=== PATIENT | female | born 1955 | race Caucasian/White ===

== ENCOUNTER 2016-12-13 10:20 | Inpatient (IN) | payer BC ==
[~2016-12-13] VITALS: Ht 172.7 cm; Wt 83.9 kg
[2016-12-13 10:20] VITALS: BP 151/73; PULSE 64; RESP 18; TEMP 96.4; O2SAT 98
[~2016-12-13 10:20] MED LIST: AVELOX; LACTULOSE; NORCO5 PO; THYROID MED; ULTRAM; ZOFRAN
--- NOTE | 2016-12-13 10:20 | NUR ---
Dr. Coyle at bedside for evaluation
--- NOTE | 2016-12-13 10:20 | NUR ---
Patient to ER bed 03 to gown for evaluation. Side rails up.
--- NOTE | 2016-12-13 10:25 | NUR ---
PT arrived to ED VIA walk in with chief complaint of N/V and ABD pain x 3 days. PT reports pain of 9/10 to the L ABD. PT vomitted in ED. Appears in acute pain. at bedside. Will continue to monitor.
[2016-12-13] MEDS ORDERED: NACL 0.9% 1,000 ML IV ONE (10:26)
[2016-12-13] MEDS ORDERED: PROCHLORPERAZINE EDISYLATE 10 MG/2 ML VIAL IVP ONE (10:30)
[2016-12-13] MEDS ORDERED: ONDANSETRON HCL 4 MG/2 ML VIAL IVP ONE ×2 (10:30→13:30)
[2016-12-13] MEDS ORDERED: KETOROLAC TROMETHAMINE 30 MG VIAL IVP ONE (10:30)
--- NOTE | 2016-12-13 11:04 | NUR ---
Medicated per MD orders. IVF infusing with no s/s of infiltration at this time. Will cont to monitor
--- NOTE | 2016-12-13 11:17 | NUR ---
PT transported off unit to [place] via [facility]
[2016-12-13 11:23] LABS: BASOPHILS % (AUTO) 0.7 % (0.0-2.0); EOSINOPHILS # (AUTO) 0.1 K/uL (0.0-0.4); EOSINOPHILS % (AUTO) 0.8 % (0.0-4.0); HEMATOCRIT 39.9 % (36-48); HEMOGLOBIN 13.3 g/dL (12.0-16.0); LYMPHOCYTES # (AUTO) 1.3 K/uL (1.0-5.5); LYMPHOCYTES % (AUTO) 19.1 % (20.5-51.5); MEAN CORPUSCULAR HEMOGLOBIN 31 pg (27-31); MEAN CORPUSCULAR HGB CONC 34 % (32-36); MEAN CORPUSCULAR VOLUME 91 fL (79.0-98.0); MONOCYTES # (AUTO) 0.3 K/uL (0.0-1.0); MONOCYTES % (AUTO) 4.7 % (1.7-9.3); NEUTROPHILS # (AUTO) 5.2 K/uL (1.8-7.7); NEUTROPHILS % (AUTO) 74.7 % (40.0-70.0); PLATELET COUNT (AUTO) 209 K/uL (130-430); RED BLOOD CELL COUNT(AUTO) 4.38 MIL/uL (4.2-6.2); RED CELL DISTRIBUTION WIDTH 13.1 % (9.0-15.0); WHITE BLOOD COUNT (AUTO) 6.9 K/uL (4.8-10.8)
[2016-12-13 11:32] LABS: CREATININE 1.04 mg/dL (0.55-1.30); POTASSIUM 3.9 mmol/L (3.5-5.1)
[2016-12-13 11:35] LABS: INR 0.9 (0.8-1.2); PROTHROMBIN TIME 10.2 SECS (9.5-12.5)
[2016-12-13 11:36] LABS: TOTAL BILIRUBIN 0.4 mg/dL (0.0-1.0); TOTAL PROTEIN, SERUM 7.7 g/dL (6.4-8.3)
--- NOTE | 2016-12-13 11:40 | NUR ---
pt. to the bathroom ambulatory, urine sample collected and sent to lab, ambulation tolerated well
[2016-12-13] MEDS ORDERED: VITD2000 PO (11:57)
[2016-12-13] MEDS ORDERED: ALEN70TA3 PO (11:57)
[2016-12-13] MEDS ORDERED: ASCO500T20 PO (11:57)
[2016-12-13] MEDS ORDERED: DOCU-144 PO (11:57)
[2016-12-13] MEDS ORDERED: LEVO75TA7 PO (11:57)
--- NOTE | 2016-12-13 11:58 | NUR ---
Medication reconciliation completed with information provided by patient. Any prior medication reconciliation on file was reviewed and corrected.
[2016-12-13 12:00] LABS: BILIRUBIN,URINE NEGATIVE (NEGATIVE); BLOOD, URINE 2+ (NEGATIVE); CLARITY/URINE CLEAR (CLEAR); COLOR,URINE YELLOW (YELLOW); GLUCOSE,URINE NEGATIVE (NEGATIVE); KETONES,URINE 1+ (NEGATIVE); LEUKOCYTE ESTERASE ,URINE NEGATIVE (NEGATIVE); NITRITE, URINE NEGATIVE (NEGATIVE); PH,URINE 7.5 (5.0-8.0); PROTEIN URINE NEGATIVE (NEGATIVE); UROBILINOGEN,URINE 0.2 (0.2-1.0)
[2016-12-13 12:18] LABS: BACTERIA,URINE RARE /HPF (None Seen); MUCUS,URINE 1+ /LPF (None Seen); WBC,URINE 0-3 /HPF (0-3)
--- NOTE | 2016-12-13 12:55 | NUR ---
Patient will be admitted to care of Dr. Arriaza . Admitted to Med/surg unit. Will go to room 110-A. Belongings list completed. Summary report printed. Report will be given at bedside. Transfer to [facility]. IV present no sign or symptom of infiltration.
--- NOTE | 2016-12-13 13:07 | NUR ---
Pt c/o abdominal pain. Dr. Arriaza paged for orders. Pt placed on cammod for BM.
[2016-12-13] MEDS ORDERED: MORPHINE 4 MG/ML INJ. SYRINGE IVP PRN ×2 (13:30→13:45)
[2016-12-13] MEDS ORDERED: DEXAMETHASONE SOD PHOSPHATE 10 MG/ML VIAL IVP ONE (13:30)
--- NOTE | 2016-12-13 13:50 | NUR ---
ADMISSION NOTE Received patient from ER via [place], received report from CARLOTTA COLON. Patient admitted with diagnosis of ABDOMINAL PAIN. Patient oriented to hospital routine, call light, toileting and safety-patient verbalized understanding.
[2016-12-13 13:56] VITALS: BP 145/83; PULSE 65; RESP 19; TEMP 97; O2SAT 97
--- NOTE | 2016-12-13 14:03 | NUR ---
REPORT RECEIVED FROM MUKUND SKINNER RN. PATIENT IS IN BED 110A, APPEARS UNCOMFORTABLE, ANXIOUS
[2016-12-13] MEDS ORDERED: METOCLOPRAMIDE HCL 10 MG/2 ML VIAL IVP PRN (15:00)
[2016-12-13] MEDS ORDERED: MORPHINE 2 MG/ML INJ. SYRINGE IVP PRN (15:00)
[2016-12-13] MEDS: D5NS 1,000 ML IV SCH (15:39)
[2016-12-13] MEDS: ONDANSETRON HCL 4 MG/2 ML VIAL IVP PRN ×2 (15:44→22:39)
--- NOTE | 2016-12-13 16:00 | NUR ---
patient medicated for pain and nausea. reports some improvement in both. anurag estevez and lauren paged for consults
[2016-12-13] MEDS ORDERED: PANTOPRAZOLE SODIUM 40 MG/VIAL (PROTONIX) IVP ONE (16:45)
--- NOTE | 2016-12-13 16:56 | NUR ---
GI Consult: for Dr. Kaba, regarding abdominal pain, ordered by Dr. Arriaza, spoke with Yady.
--- NOTE | 2016-12-13 17:06 | NUR ---
Surgical Consult: for Dr. Lim, regarding nausea/vomiting, ordered by Dr. Arriaza, spoke with
[2016-12-13 17:14] LABS: HEMOGLOBIN 13.3 g/dL (12.0-16.0)
--- NOTE | 2016-12-13 17:40 | NUR ---
DR GUERRA RETURNED PAGE FOR CONSULT. STATES HE WILL BE IN TO SEE PATIENT TOMORROW.
[2016-12-13] MEDS ORDERED: DIATR MEGLU/DIATRIZ SOD 30 ML SOLUTION PO ONE (18:54)
[2016-12-13 20:00] VITALS: BP 144/84; PULSE 76; RESP 18; TEMP 98.8
--- NOTE | 2016-12-13 20:00 | NUR ---
STARTING FLASH DEVELOPER NOTE Patient sitting in bed and nauseous. She vomited several times. The nurse checked to see whether one of her anti-emetic medications can be given, but none was due. The patient states that she is not in pain, only the distress from vomiting. The nurse tried to flush the IV line, but it flushed very hard and it was constantly beeping. The nurse was approached by the CT-scan tech and informed that the patient will be taken to have CT-scan of abdomen/pelvis w/without contrast, both oral and IV. The tech requested a new IV line to be inserted at least #20, so he can safely administer the contrast. The nurse tried to insert IV, she asked another nurse for help, but no IV line could be inserted at the moment due to patient's veins blowing. The nurse paged Dr. Marino and informed him of the situation and that the patient will be taken to the CT-scan only with the oral contrast she was drinking in bed. Dr. Marino did not place any orders. The patient was taken to CT-scan with oral contrast only. was at the bed side.
[2016-12-13] MEDS ORDERED: IOHEXOL 100 ML IV ONE (20:44)
--- NOTE | 2016-12-13 21:16 | NUR ---
PAGED PAGED TEVIN WINTER AT [phone] SPOKE WITH MAKSIM,
--- NOTE | 2016-12-13 22:00 | NUR ---
2199 NOTE Patient came back from CT-scan. She continued to vomit intermittently. The nurse decided to try one more time about inserting the IV line and asked another nurse to try it. The nurse managed to insert a new IV line on the left forearm #20. The is still at the bed side. Addendum: 12/14/16 at 0132 by Nicki Enriquez RN The patient asked for her pain medication. The nurse administered Moprhine 2 mg. New line flushes very well, IVF running smoothly.
[2016-12-13] MEDS: PANTOPRAZOLE SODIUM 40 MG/VIAL (PROTONIX) IVP SCH (22:39)
[2016-12-13 23:19] LABS: HEMATOCRIT 38.3 % (36-48); HEMOGLOBIN 13.1 g/dL (12.0-16.0)
--- NOTE | 2016-12-14 | NUR ---
0000 NOTE Patient in bed resting. She still vomits from time to time clear liquid yellowish in color (bile). The nurse administered Zofran 4 mg PRN per MD order. The patient kept vomiting for about 5-6 more minutes intermittently. Than she said she feels a little better and went to bed. No S/S of pain noted. The has left for the night. Since a new IV line was inserted, the nurse spoke with the patient about doing the CT-scan again tonight, but with IV contrast per MD order. The patient declined to do it tonight stating that her wants to be present at the CT-scan. The nurse will put an order for the CT-scan with contrast to be done tomorrow morning.
[2016-12-14 00:11] VITALS: BP 133/77; PULSE 94; RESP 18; TEMP 97.4; O2SAT 96
--- NOTE | 2016-12-14 02:00 | NUR ---
NOTE Patient in bed sleeping. No vomiting, pain or distress noted. IVF running smoothly, fall precautions in place.
[2016-12-14] MEDS: D5NS 1,000 ML IV SCH (03:50)
--- NOTE | 2016-12-14 04:10 | NUR ---
NOTE Patient in bed sleeping. No distress or pain noted. Fall precautions in place.
[2016-12-14 04:19] VITALS: BP 128/69; PULSE 85; RESP 18; TEMP 97.8; O2SAT 95
[2016-12-14 06:57] LABS: HEMATOCRIT 35.5 % (36-48); HEMOGLOBIN 11.9 g/dL (12.0-16.0)
[2016-12-14] MEDS ORDERED: LEVOTHYROXINE SODIUM 0.075 MG TABLET PO SCH (07:00)
--- NOTE | 2016-12-14 07:23 | NUR ---
OPENING NOTE PATIENT IS AWAKE, ALERT. REPORTS PAIN AND NAUSEA STILL. EATING ICE CHIPS IN BED. PER PT SHE IS REFUSING IV CONTRAST CT AND REQUESTING TO SPEAK W [facility] REGARDING ORAL CONTRAST CT RESULTS. PER NIGHTSHIFT PT LOST IV ACCESS AT TIME OF CONTRAST IV SCAN AND NO ACCESS WAS OBTAINED FOR SEVERAL HOURS. PRELIMINARY CT RESULTS FILED
[2016-12-14 08:00] VITALS: BP 149/79; PULSE 85; RESP 18; TEMP 98.5; O2SAT 98
[2016-12-14] MEDS: PANTOPRAZOLE SODIUM 40 MG/VIAL (PROTONIX) IVP SCH (08:52)
--- NOTE | 2016-12-14 09:36 | NUR ---
DR MOROCHO IN TO SEE PATIENT. DR GUERRA WAS IN TO SEE PATIENT AROUND 0800. PER DR GUERRA NO NEED FOR SURGERY AT THIS TIME.
[2016-12-14 10:41] LABS: HEMATOCRIT 35.4 % (36-48); HEMOGLOBIN 11.9 g/dL (12.0-16.0)
--- NOTE | 2016-12-14 10:45 | NUR ---
PER DR MOROCHO, ADMIN SOFT DIET. IF PT TOLERATES THEN PT MAY BE DC'D FROM HIS CARE AND IT IS THEN UP TO DR SANTOS FOR DC ORDERS. DIETARY PAGED ASKING FOR SOFT DIET SNACK TO ASSESS TOLERANCE OF DIET
[2016-12-14 12:00] VITALS: BP 132/78; PULSE 86; RESP 18; TEMP 98.6; O2SAT 98
--- NOTE | 2016-12-14 12:50 | NUR ---
pt tolerating gi soft diet well. still awaiting jandial to return earlier page regarding another patient
--- NOTE | 2016-12-14 13:00 | NUR ---
CALLED ATTENDING MD DR SANTOS, RE: DISCHARGE ORDER, PT WANTS TO GO HOME. SPOKE TO BHAVESH
[2016-12-14] MEDS ORDERED: metroNIDAZOLE 500 MG TABLET PO SCH (14:00)
--- NOTE | 2016-12-14 14:38 | NUR ---
dr trujillo in to see patient
[2016-12-14 16:00] VITALS: BP 166/88; PULSE 90; RESP 18; TEMP 98.3; O2SAT 98
[2016-12-14 16:22] VITALS: BP 144/67; PULSE 80; RESP 18; TEMP 98; O2SAT 98
--- NOTE | 2016-12-14 16:56 | NUR ---
DC ORDERS GIVEN. PT DC'D HOME VIA PRIVATE AUTO. IV DC'D AND PRESSURE DRESSING APPLIED. ALL DC INSTRUCTIONS EXPLAINED AND PATIENT VERBALIZED UNDERSTANDING.
[2016-12-14] MEDS ORDERED: LEVOFLOXACIN 500 MG TABLET PO SCH (21:00)
--- NOTE | 2016-12-18 14:49 | NUR ---
Discharge Follow Up Phone Call Referral for appointment scheduling assistance. RANGE RIDER phoned patient, , and left a voicemail message. Patient returned the call. Patient stated she was doing well. She has made her follow up appointment with her PCP. She has no questions or concerns.
== END 2016-12-14 16:56 | disposition home or self-care (01) | DRG 392 ==
LOC: SED 10:20 → SMU 12:47
PROVIDERS: ADMIT Internal Medicine Hospice and Palliative Medicine; ATTEND Internal Medicine Hospice and Palliative Medicine
DX: K52.9 Noninfective gastroenteritis and colitis, unspecified (principal); E03.9 Hypothyroidism, unspecified; M81.0 Age-related osteoporosis without current pathological fracture; H54.8 Legal blindness, as defined in USA; R11.2 Nausea with vomiting, unspecified; Z90.49 Acquired absence of other specified parts of digestive tract; Z88.5 Allergy status to narcotic agent; Z79.899 Other long term (current) drug therapy; Z94.7 Corneal transplant status
CPT/HCPCS: 36415; 80053; 81000-TC; 82150-TC; 83690-TC; 85018-TC; 85025; 85610-TC; 85730-TC; 96361; 96374; 96375; 96376; 99285; C9113; J0780; J1100; J1885; J2270; J2405; J2765; J7030; J7042; Q9964; Q9967

== ENCOUNTER 2017-06-24 08:57 | Inpatient (IN) | payer BC ==
[~2017-06-24] VITALS: Ht 172.7 cm; Wt 77.1 kg
[~2017-06-24 08:57] MED LIST changes: +ALEN70TA3 PO; +ASCO500T20 PO; -AVELOX; +DOCU-144 PO; -LACTULOSE; +LEVO75TA7 PO; -NORCO5 PO; -THYROID MED; -ULTRAM; +VITD2000 PO; -ZOFRAN
[2017-06-24 09:00] VITALS: BP_SYST 159
[2017-06-24] MEDS ORDERED: NACL 0.9% 1,000 ML IV ONE (09:11)
[2017-06-24] MEDS ORDERED: MORPHINE 2 MG/ML INJ. SYRINGE IVP ONE ×2 (09:15→10:30)
[2017-06-24] MEDS ORDERED: ONDANSETRON HCL 4 MG/2 ML VIAL IVP ONE (09:15)
[2017-06-24 09:32] LABS: BASOPHILS # (AUTO) 0.1 K/uL (0.0-0.2); BASOPHILS % (AUTO) 0.9 % (0.0-2.0); EOSINOPHILS % (AUTO) 0.3 % (0.0-4.0); HEMATOCRIT 44.2 % (36-48); HEMOGLOBIN 14.5 g/dL (12.0-16.0); LYMPHOCYTES % (AUTO) 11.3 % (20.5-51.5); MEAN CORPUSCULAR HEMOGLOBIN 31 pg (27-31); MEAN CORPUSCULAR HGB CONC 33 % (32-36); MEAN CORPUSCULAR VOLUME 93 fL (79.0-98.0); MONOCYTES # (AUTO) 0.2 K/uL (0.0-1.0); MONOCYTES % (AUTO) 2.8 % (1.7-9.3); NEUTROPHILS # (AUTO) 7.2 K/uL (1.8-7.7); NEUTROPHILS % (AUTO) 84.7 % (40.0-70.0); PLATELET COUNT (AUTO) 245 K/uL (130-430); RED BLOOD CELL COUNT(AUTO) 4.75 MIL/uL (4.2-6.2); RED CELL DISTRIBUTION WIDTH 12.7 % (9.0-15.0); WHITE BLOOD COUNT (AUTO) 8.5 K/uL (4.8-10.8)
[2017-06-24 09:45] LABS: CALCIUM 9.5 mg/dL (8.4-11.0); CREATININE 1.07 mg/dL (0.55-1.30); POTASSIUM 4.2 mmol/L (3.5-5.1)
[2017-06-24 09:51] LABS: ALBUMIN 4.2 g/dL (3.4-4.8); TOTAL BILIRUBIN 0.5 mg/dL (0.0-1.0)
[2017-06-24] MEDS ORDERED: LEVO25TA7 PO (10:21)
[2017-06-24] MEDS ORDERED: ACETAMINOPHEN 325 MG TABLET PO PRN (10:30)
[2017-06-24] MEDS ORDERED: MORPHINE 2 MG/ML INJ. SYRINGE IVP PRN (10:30)
[2017-06-24 10:54] VITALS: BP_SYST 160
[2017-06-24] MEDS: ONDANSETRON HCL 4 MG/2 ML VIAL IVP PRN ×2 (11:27→16:34)
[2017-06-24] MEDS: MORPHINE 4 MG/ML INJ. SYRINGE IVP PRN ×2 (11:29→16:35)
[2017-06-24] MEDS: D5NS 1,000 ML IV SCH (14:24)
[2017-06-24] MEDS: metroNIDAZOLE 500 mg/NS 100 ML IV SCH ×2 (14:43→22:36)
[2017-06-24 16:00] VITALS: BP_SYST 112
[2017-06-24 16:09] VITALS: BP_SYST 112
[2017-06-24] MEDS: LEVOFLOXACIN 500 MG/D5W 100 ML IV SCH (16:43)
[2017-06-24] MEDS ORDERED: HYDROmorphone 1 MG INJ. 1 MG/ML AMPUL IVP PRN (18:00)
[2017-06-24] MEDS: HYDROmorphone 2 MG/ML VIAL IVP PRN (18:04)
[2017-06-24] MEDS: METOCLOPRAMIDE HCL 10 MG/2 ML VIAL IVP PRN (18:04)
[2017-06-24 20:00] VITALS: BP_SYST 149
[2017-06-25 00:23] VITALS: BP_SYST 131
[2017-06-25] MEDS: D5NS 1,000 ML IV SCH ×3 (01:57→23:33)
[2017-06-25] MEDS: METOCLOPRAMIDE HCL 10 MG/2 ML VIAL IVP PRN (01:58)
[2017-06-25] MEDS: ONDANSETRON HCL 4 MG/2 ML VIAL IVP PRN ×3 (04:22→21:26)
[2017-06-25 05:13] VITALS: BP_SYST 152
[2017-06-25] MEDS: metroNIDAZOLE 500 mg/NS 100 ML IV SCH ×3 (05:57→21:21)
[2017-06-25] MEDS: HYDROmorphone 2 MG/ML VIAL IVP PRN ×2 (06:57→23:29)
[2017-06-25 08:02] VITALS: BP_SYST 126
[2017-06-25 08:37] LABS: BASOPHILS % (AUTO) 0.2 % (0.0-2.0); EOSINOPHILS % (AUTO) 0.3 % (0.0-4.0); HEMATOCRIT 37.6 % (36-48); HEMOGLOBIN 12.8 g/dL (12.0-16.0); LYMPHOCYTES # (AUTO) 1.2 K/uL (1.0-5.5); LYMPHOCYTES % (AUTO) 12.3 % (20.5-51.5); MEAN CORPUSCULAR HEMOGLOBIN 32 pg (27-31); MEAN CORPUSCULAR HGB CONC 34 % (32-36); MEAN CORPUSCULAR VOLUME 93 fL (79.0-98.0); MONOCYTES # (AUTO) 0.6 K/uL (0.0-1.0); MONOCYTES % (AUTO) 5.8 % (1.7-9.3); NEUTROPHILS # (AUTO) 7.9 K/uL (1.8-7.7); NEUTROPHILS % (AUTO) 81.4 % (40.0-70.0); PLATELET COUNT (AUTO) 203 K/uL (130-430); RED BLOOD CELL COUNT(AUTO) 4.05 MIL/uL (4.2-6.2); RED CELL DISTRIBUTION WIDTH 13.5 % (9.0-15.0); WHITE BLOOD COUNT (AUTO) 9.7 K/uL (4.8-10.8)
[2017-06-25 08:51] LABS: CALCIUM 8.5 mg/dL (8.4-11.0); CREATININE 0.88 mg/dL (0.55-1.30); POTASSIUM 3.4 mmol/L (3.5-5.1)
[2017-06-25 09:00] LABS: ALBUMIN 3.4 g/dL (3.4-4.8); TOTAL BILIRUBIN 0.3 mg/dL (0.0-1.0)
[2017-06-25 11:07] VITALS: BP_SYST 136
[2017-06-25] MEDS: LEVOFLOXACIN 500 MG/D5W 100 ML IV SCH (15:32)
[2017-06-25 16:27] VITALS: BP_SYST 142
[2017-06-25 20:00] VITALS: BP_SYST 158
[2017-06-26] VITALS: BP_SYST 134
[2017-06-26 04:00] VITALS: BP_SYST 138
[2017-06-26] MEDS: ONDANSETRON HCL 4 MG/2 ML VIAL IVP PRN ×2 (04:51→11:04)
[2017-06-26] MEDS: HYDROmorphone 2 MG/ML VIAL IVP PRN ×2 (04:52→11:04)
[2017-06-26] MEDS: D5NS 1,000 ML IV SCH ×2 (04:53→18:17)
[2017-06-26] MEDS: metroNIDAZOLE 500 mg/NS 100 ML IV SCH ×3 (05:02→22:12)
[2017-06-26 08:34] VITALS: BP_SYST 148
[2017-06-26] MEDS ORDERED: GASTROGRAFIN 120 ML ONE (09:43)
[2017-06-26 11:52] VITALS: BP_SYST 130
[2017-06-26] MEDS: METOCLOPRAMIDE HCL 10 MG/2 ML VIAL IVP PRN (14:54)
[2017-06-26 15:42] VITALS: BP_SYST 124
[2017-06-26] MEDS: LEVOFLOXACIN 500 MG/D5W 100 ML IV SCH (15:52)
[2017-06-26 23:50] VITALS: BP_SYST 133
[2017-06-27] MEDS: D5NS 1,000 ML IV SCH (01:45)
[2017-06-27 03:56] VITALS: BP_SYST 142
[2017-06-27] MEDS: metroNIDAZOLE 500 mg/NS 100 ML IV SCH (05:01)
[2017-06-27 07:40] VITALS: BP_SYST 150
[2017-06-27 08:30] VITALS: BP_SYST 150
[2017-06-27 11:33] VITALS: BP_SYST 153
[2017-06-27 12:45] VITALS: BP_SYST 153
[2017-06-27] MEDS ORDERED: LEVO500T20 PO (12:51)
[2017-06-27 13:30] VITALS: BP_SYST 153
== END 2017-06-27 13:10 | disposition home or self-care (01) | DRG 392 ==
LOC: SED 08:57 → SMU 10:36
PROVIDERS: ADMIT Internal Medicine Hospice and Palliative Medicine; ATTEND Internal Medicine Hospice and Palliative Medicine
DX: K52.9 Noninfective gastroenteritis and colitis, unspecified (principal); E03.9 Hypothyroidism, unspecified; F19.10 Other psychoactive substance abuse, uncomplicated; H54.8 Legal blindness, as defined in USA; M81.0 Age-related osteoporosis without current pathological fracture; Z90.49 Acquired absence of other specified parts of digestive tract
CPT/HCPCS: 36415; 74250-TC; 80053; 83605; 83690-TC; 85025; 85610-TC; 85730-TC; 87040-TC; 96361; 96374; 96375; 96376; 99285; J1170; J1956; J2270; J2405; J2765; J3490; J7030; J7042; Q9963

== ENCOUNTER 2017-08-23 06:05 | Emergency (ER) | payer BC ==
[~2017-08-23] VITALS: Ht 172.7 cm; Wt 72.6 kg
[~2017-08-23 06:05] MED LIST changes: +LEVO25TA7 PO; +LEVO500T20 PO
[2017-08-23 06:34] VITALS: BP_SYST 150
[2017-08-23] MEDS ORDERED: NACL 0.9% 1,000 ML IV ONE (06:36)
[2017-08-23] MEDS ORDERED: ONDANSETRON HCL 4 MG/2 ML VIAL IVP ONE (06:45)
[2017-08-23] MEDS ORDERED: HYDROmorphone 1 MG INJ. 1 MG/ML AMPUL IVP ONE (06:45)
[2017-08-23 08:22] LABS: BASOPHILS % (AUTO) 0.3 % (0.0-2.0); EOSINOPHILS # (AUTO) 0.1 K/uL (0.0-0.4); EOSINOPHILS % (AUTO) 0.7 % (0.0-4.0); HEMATOCRIT 38.1 % (36-48); HEMOGLOBIN 13.1 g/dL (12.0-16.0); LYMPHOCYTES % (AUTO) 13.2 % (20.5-51.5); MEAN CORPUSCULAR HEMOGLOBIN 32 pg (27-31); MEAN CORPUSCULAR HGB CONC 34 % (32-36); MEAN CORPUSCULAR VOLUME 92 fL (79.0-98.0); MONOCYTES # (AUTO) 0.4 K/uL (0.0-1.0); MONOCYTES % (AUTO) 4.7 % (1.7-9.3); NEUTROPHILS % (AUTO) 81.1 % (40.0-70.0); PLATELET COUNT (AUTO) 215 K/uL (130-430); RED BLOOD CELL COUNT(AUTO) 4.15 MIL/uL (4.2-6.2); RED CELL DISTRIBUTION WIDTH 12.9 % (9.0-15.0); WHITE BLOOD COUNT (AUTO) 7.5 K/uL (4.8-10.8)
[2017-08-23 10:25] LABS: BILIRUBIN,URINE NEGATIVE (NEGATIVE); BLOOD, URINE 1+ (NEGATIVE); CLARITY/URINE CLEAR (CLEAR); COLOR,URINE YELLOW (YELLOW); GLUCOSE,URINE NEGATIVE (NEGATIVE); KETONES,URINE TRACE (NEGATIVE); LEUKOCYTE ESTERASE ,URINE NEGATIVE (NEGATIVE); NITRITE, URINE NEGATIVE (NEGATIVE); PH,URINE 7.5 (5.0-8.0); PROTEIN URINE 1+ (NEGATIVE); UROBILINOGEN,URINE 0.2 (0.2-1.0)
[2017-08-23 10:40] LABS: BACTERIA,URINE FEW /HPF (None Seen); MUCUS,URINE 1+ /LPF (None Seen); RBC,URINE 0-3 /HPF (0-3); WBC,URINE NONE SEEN /HPF (0-3)
[2017-08-23 10:50] VITALS: BP_SYST 135
== END 2017-08-23 10:50 | disposition home or self-care (01) ==
LOC: SED 06:05
DX: R11.2 Nausea with vomiting, unspecified (principal); R10.9 Unspecified abdominal pain; Z88.1 Allergy status to other antibiotic agents; Z88.5 Allergy status to narcotic agent; Z90.49 Acquired absence of other specified parts of digestive tract; Z90.710 Acquired absence of both cervix and uterus; Z88.8 Allergy status to other drugs, medicaments and biological substances
CPT/HCPCS: 36415; 81000; 83690; 85025; 96361; 96374; 96375; 99284; J1170; J2405; J7030

== ENCOUNTER 2017-09-19 07:29 | Inpatient (IN) | payer BC ==
[~2017-09-19] VITALS: Ht 170.2 cm; Wt 72.7 kg
[2017-09-19 07:43] VITALS: BP_SYST 151
--- NOTE | 2017-09-19 07:47 | NUR ---
Patient to ER bed 03 to gown for evaluation. Side rails up.
--- NOTE | 2017-09-19 07:51 | NUR ---
Dr. Freitas at bedside for evaluation
[2017-09-19] MEDS ORDERED: NACL 0.9% 1,000 ML IV SCH (07:56)
[2017-09-19] MEDS ORDERED: HYDROmorphone 1 MG INJ. 1 MG/ML AMPUL IVP ONE ×2 (08:00→09:15)
--- NOTE | 2017-09-19 08:24 | NUR ---
Medicated for 9/10 LLQ pain with Dilaudid per Dr. Freitas's order. Family at bedside will continue to monitor
[2017-09-19 08:26] LABS: BASOPHILS # (AUTO) 0.1 K/uL (0.0-0.2); BASOPHILS % (AUTO) 0.6 % (0.0-2.0); EOSINOPHILS % (AUTO) 0.3 % (0.0-4.0); HEMATOCRIT 45.8 % (36-48); HEMOGLOBIN 15.3 g/dL (12.0-16.0); LYMPHOCYTES # (AUTO) 1.3 K/uL (1.0-5.5); LYMPHOCYTES % (AUTO) 15.3 % (20.5-51.5); MEAN CORPUSCULAR HEMOGLOBIN 31 pg (27-31); MEAN CORPUSCULAR HGB CONC 34 % (32-36); MEAN CORPUSCULAR VOLUME 93 fL (79.0-98.0); MONOCYTES # (AUTO) 0.4 K/uL (0.0-1.0); MONOCYTES % (AUTO) 4.4 % (1.7-9.3); NEUTROPHILS # (AUTO) 6.9 K/uL (1.8-7.7); NEUTROPHILS % (AUTO) 79.4 % (40.0-70.0); PLATELET COUNT (AUTO) 304 K/uL (130-430); RED BLOOD CELL COUNT(AUTO) 4.94 MIL/uL (4.2-6.2); RED CELL DISTRIBUTION WIDTH 13.3 % (9.0-15.0); WHITE BLOOD COUNT (AUTO) 8.7 K/uL (4.8-10.8)
--- NOTE | 2017-09-19 08:43 | NUR ---
Off unit to radiology
[2017-09-19] MEDS ORDERED: ONDANSETRON HCL 4 MG/2 ML VIAL IVP ONE (08:45)
[2017-09-19 08:50] LABS: CALCIUM 10.3 mg/dL (8.4-11.0); CREATININE 1.03 mg/dL (0.55-1.30); POTASSIUM 4.3 mmol/L (3.5-5.1)
--- NOTE | 2017-09-19 08:52 | NUR ---
Dr. Freitas notified of pain 02/02
[2017-09-19 08:54] LABS: ALBUMIN 4.5 g/dL (3.4-4.8); TOTAL BILIRUBIN 0.5 mg/dL (0.0-1.0)
[2017-09-19 08:55] LABS: BILIRUBIN,URINE NEGATIVE (NEGATIVE); BLOOD, URINE 1+ (NEGATIVE); CLARITY/URINE CLEAR (CLEAR); COLOR,URINE YELLOW (YELLOW); GLUCOSE,URINE NEGATIVE (NEGATIVE); KETONES,URINE 3+ (NEGATIVE); LEUKOCYTE ESTERASE ,URINE NEGATIVE (NEGATIVE); NITRITE, URINE NEGATIVE (NEGATIVE); PH,URINE 8.5 (5.0-8.0); PROTEIN URINE TRACE (NEGATIVE); UROBILINOGEN,URINE 0.2 (0.2-1.0)
[2017-09-19 09:01] LABS: BACTERIA,URINE FEW /HPF (None Seen); WBC,URINE 0-3 /HPF (0-3)
[2017-09-19] MEDS ORDERED: metroNIDAZOLE 500 mg/NS 100 ML IV ONE (09:15)
--- NOTE | 2017-09-19 09:30 | NUR ---
Medicated for 10/10 abd pain with Dilaudid per Dr. Freitas's order. Flagyl started infusing without complication. Spoke with lab states blood cx drawn x 2
[2017-09-19] MEDS ORDERED: CALC-226 PO (09:36)
--- NOTE | 2017-09-19 09:50 | NUR ---
Patient will be admitted to [facility]. Admitted to [facility] unit. Will go to room 125 A. Belongings list completed. Summary report printed. Report will be given at bedside.
--- NOTE | 2017-09-19 09:59 | NUR ---
ADMISSION NOTE Received patient from ER via gurney. Patient admitted with diagnosis of abdominal pain. Patient is awake, alert, oriented X 4 . Patient oriented to hospital room, call light, toileting, pain management and safety-teach back done. Patient informed that will be nurse and that their room number is 126-a . Personal belongings checked and Belongings List documented. Call light within reach.
[2017-09-19] MEDS ORDERED: METOCLOPRAMIDE HCL 10 MG/2 ML VIAL IVP PRN (10:00)
[2017-09-19] MEDS ORDERED: ACETAMINOPHEN 325 MG TABLET PO PRN (10:00)
[2017-09-19] MEDS ORDERED: ONDANSETRON HCL 4 MG/2 ML VIAL IVP PRN (10:00)
[2017-09-19 10:03] VITALS: BP_SYST 154
--- NOTE | 2017-09-19 10:03 | NUR ---
CONSULTATION PAGED REASON FOR CONSULTATION:COLITIS WAS CONSULT CALLED?Y PERSON WHO WAS NOTIFIED:AURY CONSULTING PHYSICIAN:TEVIN WINTER CHIEF OPERATING OFFICER SPECIALTY:GI CHIEF OPERATING OFFICER PHONE NUMBER:[phone] ORDERING PHYSICIAN:YAZAN TONEY
--- NOTE | 2017-09-19 10:06 | NUR ---
Transfered to 126A report given to Nesha no further questions at this time. IV infusing without complication
[2017-09-19] MEDS ORDERED: ALENDRONATE SODIUM 70 MG TABLET (FOSAMAX) PO SCH (10:15)
--- NOTE | 2017-09-19 10:15 | NUR ---
Admission Note 2 Received report from Nesha. Pt is in stable condition. No sign of distress noted. Chief complaint: abdominal pain. Waiting on pharmacy to verify pain med. Bed is at lowest position. Call light within reach. Will continue to monitor pt.
--- NOTE | 2017-09-19 10:27 | NUR ---
GI MD Called Dr. Silver called and said that he will be able to see pt until tomorrow. is aware of pt's admission diagnosis (Colitis of the sigmoid colon).
[2017-09-19] MEDS ORDERED: LEVOFLOXACIN 500 MG/D5W 100 ML IV ONE (10:45)
[2017-09-19] MEDS: MORPHINE SULFATE 10 MG/ML VIAL IVP PRN (11:14)
[2017-09-19] MEDS: METOCLOPRAMIDE HCL 10 MG/2 ML VIAL IVP PRN (11:14)
[2017-09-19] MEDS: metroNIDAZOLE 500 mg/NS 100 ML IV SCH ×3 (11:15→21:02)
[2017-09-19 12:15] VITALS: BP_SYST 146
[2017-09-19 17:17] VITALS: BP_SYST 127
[2017-09-19] MEDS: D5NS 1,000 ML IV SCH (19:59)
[2017-09-19 20:00] VITALS: BP_SYST 140
--- NOTE | 2017-09-19 20:00 | NUR ---
Initial Notes Received patient resting in bed, awake, alert, oriented, family at bedside. Patient denies any acute distress or pain at this time. Vital signs stable. Breathing is even and unlabored on room air. IV site patent/clean/dry. Needs addressed. Educated patient regarding use of call light for assistance and fall precautions, patient verbalized understanding. Call light in hand, fall precautions in place, will continue to monitor.
--- NOTE | 2017-09-19 22:00 | NUR ---
Nursing Notes Patient resting in bed, awake. Patient denies any acute distress or pain at this time. IV site patent/clean/dry. Needs addressed. Call light in hand, fall precautions in place.
[2017-09-20] VITALS: BP_SYST 137
--- NOTE | 2017-09-20 00:15 | NUR ---
Nursing Notes Patient resting in bed, awake. Patient denies any acute distress or pain at this time. IV site patent/clean/dry. Patient denies any needs at this time. Call light in hand, fall precautions in place.
--- NOTE | 2017-09-20 02:00 | NUR ---
Nursing Notes Patient resting in bed with eyes closed. Patient in no acute distress, breathing is even and unlabored. IV site patent/clean/dry. Call light in hand, fall precautions in place. Will continue to monitor.
[2017-09-20] MEDS: ONDANSETRON HCL 4 MG/2 ML VIAL IVP PRN ×2 (03:34→08:59)
[2017-09-20] MEDS: MORPHINE 2 MG/ML INJ. SYRINGE IVP PRN ×2 (03:40→08:08)
[2017-09-20 04:00] VITALS: BP_SYST 158
--- NOTE | 2017-09-20 04:00 | NUR ---
Nursing Notes Patient resting in bed awake. Patient denies any acute distress. Medicated patient for N/V and pain per MD orders. IV site patent/clean/dry. Needs addressed. Call light in hand, fall precautions in place. Will continue to monitor.
[2017-09-20] MEDS: MORPHINE SULFATE 10 MG/ML VIAL IVP PRN (04:30)
[2017-09-20] MEDS: metroNIDAZOLE 500 mg/NS 100 ML IV SCH ×3 (05:05→21:20)
[2017-09-20] MEDS: D5NS 1,000 ML IV SCH ×2 (05:06→17:41)
[2017-09-20] MEDS: METOCLOPRAMIDE HCL 10 MG/2 ML VIAL IVP PRN (05:08)
[2017-09-20] MEDS: LEVOTHYROXINE SODIUM 0.075 MG TABLET PO SCH (06:01)
--- NOTE | 2017-09-20 06:39 | NUR ---
Closing Notes Patient resting in bed with eyes closed, easily aroused. Patient denies any acute distress or pain at this time. Breathing is even and unlabored. IV site patent/clean/dry, no S/S infection/infiltration noted. Needs addressed throughout shift. Call light in hand, fall precautions in place. Will continue to monitor for changes and safety, and endorse all patient care/needs to oncoming nurse.
--- NOTE | 2017-09-20 08:00 | NUR ---
Opening Note Report received form the [facility] shift nurse. Patient is resting in bed. IV is on the RFA 22g running D5Ns@100. Patient has been complaining of abdominal pain and nausea. Call light is within reach and bed is in low position. Will continue to monitor.
[2017-09-20 08:13] VITALS: BP_SYST 158
[2017-09-20] MEDS: CALCIUM CARBONATE/VITAMIN D3 1 TAB TABLET PO SCH (08:58)
[2017-09-20] MEDS: LEVOFLOXACIN 500 MG/D5W 100 ML IV SCH (08:58)
[2017-09-20] MEDS: CHOLECALCIFEROL (VITAMIN D3) 2,000 UNIT TABLET PO SCH (08:58)
--- NOTE | 2017-09-20 09:13 | NUR ---
FOLLOW UP ON GI CONSULT REASON FOR CONSULTATION:COLITIS WAS CONSULT CALLED?:Y PERSON WHO WAS NOTIFIED:RUTH CONSULTING PHYSICIAN:TEVIN WINTER ( KEG INSPECTOR) STRATEGY ANALYST SPECIALTY:GI STRATEGY ANALYST PHONE NUMBER:[phone] REQUESTING PHYSICIAN:YAZAN TONEY
--- NOTE | 2017-09-20 09:30 | NUR ---
Spoke with MD Spoke with Dr. Mayberry who stated that he will see the patient later on this afternoon.
--- NOTE | 2017-09-20 10:20 | NUR ---
Notes Patient is resting in bed. No signs of distress noted at the moment.
[2017-09-20 11:43] VITALS: BP_SYST 148
--- NOTE | 2017-09-20 12:45 | NUR ---
Rounds Patient is resting in bed. No signs of distress noted at the moment.
--- NOTE | 2017-09-20 16:07 | NUR ---
MD Rounds Patient is resting in bed no signs of distress noted at the moment. Call light is within reach.
[2017-09-20 16:08] VITALS: BP_SYST 117
--- NOTE | 2017-09-20 16:30 | NUR ---
Rounds Patient is resting in bed. No signs of distress noted.
[2017-09-20] MEDS ORDERED: METOCLOPRAMIDE HCL 10 MG/2 ML VIAL IVP SCH (17:00)
--- NOTE | 2017-09-20 17:36 | NUR ---
Tap Water Enema Administered a tap water enema per MD order. Patient tolerated well and had one BM.
--- NOTE | 2017-09-20 18:35 | NUR ---
Closing Note Patient is resting in bed. Tolerated clear liquid diet well. IV is on the RFA 22g running D5NS@100. Will endorse care to the oncoming nurse
--- NOTE | 2017-09-20 20:00 | NUR ---
Opening notes Patient in bed resting. AAOx4 on room air. Right forearm 22 gauge patent and D5NS running @100ml/hr. Patient tolerating well. Patient denies pain at this time. Educated patient on the use of the call light. Patient verbalized understanding.
--- NOTE | 2017-09-20 22:30 | NUR ---
Rounds Patient in bed resting reading paper. Denies pain at this time. All needs met. Bed in low position and call light with patient.
--- NOTE | 2017-09-20 23:40 | NUR ---
requested shower. Patient requested shower. TIM Merritt assisted with shower and patient is back in bed at this time All needs met at this time. Patient denies pain. Bed in ow position and call light with patient.
[2017-09-21] MEDS: D5NS 1,000 ML IV SCH ×2 (01:15→11:15)
--- NOTE | 2017-09-21 01:35 | NUR ---
Rounds Patient in bed reading newspaper. Denies pain at this time. No acute distress noted. All needs met. Bed in low position and call light with patient.
[2017-09-21 02:20] VITALS: BP_SYST 131
--- NOTE | 2017-09-21 03:40 | NUR ---
Rounds Patient in bed sleeping. No SOB or acute distress noted at this time. Bed in low position and call light with patient.
[2017-09-21] MEDS: LEVOTHYROXINE SODIUM 0.075 MG TABLET PO SCH (06:00)
[2017-09-21] MEDS: metroNIDAZOLE 500 mg/NS 100 ML IV SCH ×2 (06:01→14:07)
--- NOTE | 2017-09-21 06:15 | NUR ---
C/O headache Patient c/o headache 11/02. Administered Tylenol PRN as ordered. Patient tolerated well. Administered Morning medication as ordered. Patient tolerated well. All needs met. Bed in low position and call light with patient.
--- NOTE | 2017-09-21 07:10 | NUR ---
Dr Silver Spoke with Dr. Silver in person. New orders , Advance to soft diet, OK to Discharge patient confer with Dr. Arriaza.
--- NOTE | 2017-09-21 07:11 | NUR ---
Closing notes Patient in bed resting. All needs met at this time. Bed in low position and call light with patient. Will endorse to day shift patient's plan of care.
--- NOTE | 2017-09-21 07:50 | NUR ---
OPENING NOTE RECEIVED PATIENT FROM TRANSITION COACH. PATIENT AWAKE IN BED. A/Ox4. DENIES PAIN. VERBALLY RESPONSIVE AND ABLE TO MAKE NEEDS KNOWN. ON ROOM AIR. NO ACUTE DISTRESS. NO SOB. RESPIRATION EVEN AND UNLABORED. SKIN WARM AND DRY TO TOUCH. IVF INFUSING TO RIGHT HAND, CRYSTAL WELL, WITH NO S/SX INFECTION/INFILTRATION NOTED. BED IN LOW AND LOCKED POSITION. SIDRAIL UP x2. ORIENTED PATIENT TO CALL LIGHT AND TO USE FOR ASSIST, PATIENT VERBALIZED UNDERSTANDING. ALL NEEDS MET. CALL LIGHT IN REACH. CONTINUE TO MONITOR.
[2017-09-21] MEDS: CHOLECALCIFEROL (VITAMIN D3) 2,000 UNIT TABLET PO SCH (08:09)
[2017-09-21] MEDS: CALCIUM CARBONATE/VITAMIN D3 1 TAB TABLET PO SCH (08:09)
[2017-09-21] MEDS: LEVOFLOXACIN 500 MG/D5W 100 ML IV SCH (08:10)
[2017-09-21] MEDS ORDERED: POLYETHYLENE GLYCOL 3350, 17 GM/ POWD.PACK PO SCH (09:00)
--- NOTE | 2017-09-21 09:30 | NUR ---
NOTES PATIENT STABLE. DENIES ANY PAIN/DISCOMFORT. IV PUMP BEEPING. IV INTACT, PATENT AND FLUSHES FREELY WITH NO S/SX INFECTION/INFILTRATION NOTED. ALL NEEDS MET. CONTINUE TO MONITOR Addendum: 09/21/17 at 1705 by Crista Townsend RN SEEN BY WITH NEW ORDERS TO D/C HOME
--- NOTE | 2017-09-21 11:30 | NUR ---
NOTES PATIENT STABLE. USING CELL PHONE IN BED. DENIES ANY PAIN/DISCOMFORT. CALL LIGHT IN REACH. CONTINUE TO MONITOR
[2017-09-21 12:38] VITALS: BP_SYST 132
[2017-09-21 13:06] VITALS: BP_SYST 131
--- NOTE | 2017-09-21 13:30 | NUR ---
NOTES PATIENT STABLE. CRYSTAL LUNCH WITH NO N/V NOTED. DENIES PAIN AT THIS TIME. CONTINUE TO MONITOR. CALL LIGHT IN REACH
[2017-09-21] MEDS ORDERED: METO-290 PO (13:33)
[2017-09-21] MEDS ORDERED: LEVO500T20 PO (13:34)
[2017-09-21] MEDS ORDERED: METR500T PO (13:34)
[2017-09-21] MEDS ORDERED: POLY17PO4 PO (13:35)
[2017-09-21 15:22] VITALS: BP_SYST 128
--- NOTE | 2017-09-21 15:30 | NUR ---
NOTES PATIENT STABLE. NO ACUTE DISTRESS. RESPIRATION EVEN AND UNLABORED. DENIES PAIN/DISCOMFORT. BROTHER AND NEPHEW SITTING AT BEDSIDE. ALL NEEDS MET. CONTINUE TO MONITOR. CALL LIGHT IN REACH
--- NOTE | 2017-09-21 16:45 | NUR ---
D/C Patient Patient given medication reconciliation form and D/C instructions. Exit Care provided. Patient verbalized understanding. MD discussed with patient the results and treatment provided. Ambulatory with steady gait for discharge to home. Patient in stable condition, ID band removed. IV catheter removed, intact and dressing applied, no active bleeding. Rx of Reglan, Levaquin, Flagyl and Miralax given. Patient educated on pain management. All belongings sent with patient.
== END 2017-09-21 16:45 | disposition home or self-care (01) | DRG 389 ==
LOC: SED 07:29 → SMU 09:36
PROVIDERS: ADMIT Internal Medicine Hospice and Palliative Medicine; ATTEND Internal Medicine Hospice and Palliative Medicine
DX: K56.41 Fecal impaction (principal); K57.32 Diverticulitis of large intestine without perforation or abscess without bleeding; E03.9 Hypothyroidism, unspecified; H54.8 Legal blindness, as defined in USA; M19.90 Unspecified osteoarthritis, unspecified site; Z90.49 Acquired absence of other specified parts of digestive tract; Z88.5 Allergy status to narcotic agent; Z88.8 Allergy status to other drugs, medicaments and biological substances; Z79.899 Other long term (current) drug therapy
CPT/HCPCS: 36415; 80053; 81000-TC; 83605; 83690-TC; 85025; 87040-TC; 96361; 96365; 96375; 96376; 99285; J1170; J1956; J2270; J2405; J2765; J3490; J7030; J7042; J7050

== ENCOUNTER 2018-01-01 09:36 | Emergency (ER) | payer BC ==
[~2018-01-01] VITALS: Ht 172.7 cm; Wt 68.0 kg
[2018-01-01 09:36] VITALS: BP_SYST 159
[~2018-01-01 09:36] MED LIST changes: -ASCO500T20 PO; +CALC-226 PO; -DOCU-144 PO; -LEVO25TA7 PO; +METO-290 PO; +METR500T PO; +POLY17PO4 PO
[2018-01-01] MEDS ORDERED: MORPHINE 4 MG/ML INJ. SYRINGE IVP ONE ×3 (10:00→12:00)
[2018-01-01] MEDS ORDERED: ONDANSETRON HCL 4 MG/2 ML VIAL IVP ONE ×2 (10:00→11:45)
[2018-01-01] MEDS ORDERED: NACL 0.9% 1,000 ML IV ONE ×2 (10:00→11:45)
[2018-01-01 10:22] LABS: BASOPHILS # (AUTO) 0.1 K/uL (0.0-0.2); BASOPHILS % (AUTO) 0.7 % (0.0-2.0); EOSINOPHILS % (AUTO) 0.2 % (0.0-4.0); HEMATOCRIT 41.4 % (36-48); HEMOGLOBIN 14.4 g/dL (12.0-16.0); LYMPHOCYTES # (AUTO) 0.9 K/uL (1.0-5.5); LYMPHOCYTES % (AUTO) 10.2 % (20.5-51.5); MEAN CORPUSCULAR HEMOGLOBIN 32 pg (27-31); MEAN CORPUSCULAR HGB CONC 35 % (32-36); MEAN CORPUSCULAR VOLUME 91 fL (79.0-98.0); MONOCYTES # (AUTO) 0.2 K/uL (0.0-1.0); MONOCYTES % (AUTO) 2.8 % (1.7-9.3); NEUTROPHILS # (AUTO) 7.4 K/uL (1.8-7.7); NEUTROPHILS % (AUTO) 86.1 % (40.0-70.0); PLATELET COUNT (AUTO) 227 K/uL (130-430); RED BLOOD CELL COUNT(AUTO) 4.53 MIL/uL (4.2-6.2); RED CELL DISTRIBUTION WIDTH 13.3 % (9.0-15.0); WHITE BLOOD COUNT (AUTO) 8.6 K/uL (4.8-10.8)
[2018-01-01 10:28] LABS: BILIRUBIN,URINE NEGATIVE (NEGATIVE); BLOOD, URINE 1+ (NEGATIVE); CLARITY/URINE CLEAR (CLEAR); COLOR,URINE YELLOW (YELLOW); GLUCOSE,URINE NEGATIVE (NEGATIVE); KETONES,URINE 1+ (NEGATIVE); LEUKOCYTE ESTERASE ,URINE NEGATIVE (NEGATIVE); NITRITE, URINE NEGATIVE (NEGATIVE); PROTEIN URINE NEGATIVE (NEGATIVE); UROBILINOGEN,URINE 0.2 (0.2-1.0)
[2018-01-01 10:44] LABS: CALCIUM 9.8 mg/dL (8.4-11.0); CREATININE 0.96 mg/dL (0.55-1.30); POTASSIUM 3.7 mmol/L (3.5-5.1)
[2018-01-01 10:47] LABS: ALBUMIN 4.2 g/dL (3.4-4.8); TOTAL BILIRUBIN 0.5 mg/dL (0.0-1.0)
[2018-01-01 11:02] LABS: BACTERIA,URINE FEW /HPF (None Seen); MUCUS,URINE None Seen /LPF (None Seen); WBC,URINE 0-3 /HPF (0-3)
[2018-01-01] MEDS ORDERED: MAGNESIUM CITRATE 300 ML ORAL SOLUTION PO ONE (12:00)
[2018-01-01] MEDS ORDERED: PROCHLORPERAZINE EDISYLATE 10 MG/2 ML VIAL IVP ONE (12:45)
[2018-01-01] MEDS ORDERED: PROMETHAZINE HCL 25 MG/ML AMP IVP ONE (13:30)
[2018-01-01 14:00] VITALS: BP_SYST 107
== END 2018-01-01 14:00 | disposition home or self-care (01) ==
LOC: SED 09:36
DX: K59.00 Constipation, unspecified (principal); R11.2 Nausea with vomiting, unspecified; E03.9 Hypothyroidism, unspecified; M19.90 Unspecified osteoarthritis, unspecified site; Z90.49 Acquired absence of other specified parts of digestive tract; Z79.899 Other long term (current) drug therapy; Z88.5 Allergy status to narcotic agent; Z88.8 Allergy status to other drugs, medicaments and biological substances
CPT/HCPCS: 36415; 74176; 80053; 81000; 83605; 83690; 85025; 87040; 96361; 96374; 96375; 96376; 99285; J0780; J2270; J2405; J2550; J7030

== ENCOUNTER 2018-03-14 13:17 | Emergency (ER) | payer BC ==
[~2018-03-14] VITALS: Ht 172.7 cm; Wt 68.0 kg
[2018-03-14 13:25] VITALS: BP_SYST 129
[2018-03-14] MEDS ORDERED: NACL 0.9% 1,000 ML IV ONE (13:49)
[2018-03-14] MEDS ORDERED: ONDANSETRON HCL 4 MG/2 ML VIAL IVP ONE ×2 (14:00→15:45)
[2018-03-14] MEDS ORDERED: MORPHINE 4 MG/ML INJ. SYRINGE IVP ONE ×2 (14:00→15:15)
[2018-03-14 14:30] LABS: BASOPHILS % (AUTO) 0.1 % (0.0-2.0); HEMATOCRIT 43.8 % (36-48); HEMOGLOBIN 14.9 g/dL (12.0-16.0); LYMPHOCYTES # (AUTO) 0.2 K/uL (1.0-5.5); LYMPHOCYTES % (AUTO) 2.9 % (20.5-51.5); MEAN CORPUSCULAR HEMOGLOBIN 31 pg (27-31); MEAN CORPUSCULAR HGB CONC 34 % (32-36); MEAN CORPUSCULAR VOLUME 92 fL (79.0-98.0); MONOCYTES # (AUTO) 0.4 K/uL (0.0-1.0); MONOCYTES % (AUTO) 5.1 % (1.7-9.3); NEUTROPHILS # (AUTO) 7.5 K/uL (1.8-7.7); NEUTROPHILS % (AUTO) 91.9 % (40.0-70.0); PLATELET COUNT (AUTO) 206 K/uL (130-430); RED BLOOD CELL COUNT(AUTO) 4.74 MIL/uL (4.2-6.2); RED CELL DISTRIBUTION WIDTH 12.8 % (9.0-15.0); WHITE BLOOD COUNT (AUTO) 8.1 K/uL (4.8-10.8)
[2018-03-14 14:46] LABS: CALCIUM 9.3 mg/dL (8.4-11.0); CREATININE 1.07 mg/dL (0.55-1.30); POTASSIUM 3.4 mmol/L (3.5-5.1)
[2018-03-14 14:50] LABS: ALBUMIN 3.8 g/dL (3.4-4.8); TOTAL BILIRUBIN 0.6 mg/dL (0.0-1.0)
[2018-03-14 15:36] LABS: BILIRUBIN,URINE NEGATIVE (NEGATIVE); BLOOD, URINE 2+ (NEGATIVE); CLARITY/URINE CLEAR (CLEAR); COLOR,URINE YELLOW (YELLOW); GLUCOSE,URINE NEGATIVE (NEGATIVE); KETONES,URINE 1+ (NEGATIVE); LEUKOCYTE ESTERASE ,URINE NEGATIVE (NEGATIVE); NITRITE, URINE NEGATIVE (NEGATIVE); PROTEIN URINE 1+ (NEGATIVE); UROBILINOGEN,URINE 0.2 (0.2-1.0)
[2018-03-14 15:48] LABS: BACTERIA,URINE FEW /HPF (None Seen); MUCUS,URINE 1+ /LPF (None Seen); WBC,URINE 0-3 /HPF (0-3)
[2018-03-14 16:15] VITALS: BP_SYST 129
== END 2018-03-14 16:15 | disposition home or self-care (01) ==
LOC: SED 13:17
DX: R10.32 Left lower quadrant pain (principal); R11.2 Nausea with vomiting, unspecified; M19.90 Unspecified osteoarthritis, unspecified site; R03.0 Elevated blood-pressure reading, without diagnosis of hypertension; Z88.6 Allergy status to analgesic agent; Z88.5 Allergy status to narcotic agent; Z79.899 Other long term (current) drug therapy
CPT/HCPCS: 36415; 74176; 80053; 81000; 83690; 85025; 96361; 96374; 96375; 96376; 99285; J2270; J2405; J7030

== ENCOUNTER 2018-11-28 08:27 | Inpatient (IN) | payer BC ==
[~2018-11-28] VITALS: Ht 172.7 cm; Wt 3.2 kg
[2018-11-28 08:27] VITALS: BP_SYST 154
[~2018-11-28 08:27] MED LIST changes: -CALC-226 PO; +CALC-823 PO
[2018-11-28] MEDS ORDERED: NACL 0.9% 1,000 ML IV ONE (08:40)
[2018-11-28] MEDS ORDERED: MORPHINE 4 MG/ML INJ. SYRINGE IVP ONE (08:45)
[2018-11-28] MEDS ORDERED: ONDANSETRON HCL 4 MG/2 ML VIAL IVP ONE ×2 (08:45→13:30)
[2018-11-28 09:34] LABS: HEMATOCRIT 43.7 % (36-48); HEMOGLOBIN 14.9 g/dL (12.0-16.0); LYMPHOCYTES % (AUTO) 18.5 % (20.5-51.5); MEAN CORPUSCULAR HEMOGLOBIN 31 pg (27-31); MEAN CORPUSCULAR HGB CONC 34 % (32-36); MEAN CORPUSCULAR VOLUME 92 fL (79.0-98.0); NEUTROPHILS % (AUTO) 72.6 % (40.0-70.0); PLATELET COUNT (AUTO) 221 K/uL (130-430); RED BLOOD CELL COUNT(AUTO) 4.76 MIL/uL (4.2-6.2); RED CELL DISTRIBUTION WIDTH 3.7 % (9.0-15.0); WHITE BLOOD COUNT (AUTO) 9.1 K/uL (4.8-10.8)
[2018-11-28 09:35] LABS: BASOPHILS # (AUTO) 0.1 K/uL (0.0-0.2); BASOPHILS % (AUTO) 0.8 % (0.0-2.0); EOSINOPHILS # (AUTO) 0.1 K/uL (0.0-0.4); EOSINOPHILS % (AUTO) 1.2 % (0.0-4.0); LYMPHOCYTES # (AUTO) 1.7 K/uL (1.0-5.5); MONOCYTES # (AUTO) 0.6 K/uL (0.0-1.0); MONOCYTES % (AUTO) 6.9 % (1.7-9.3); NEUTROPHILS # (AUTO) 6.6 K/uL (1.8-7.7)
[2018-11-28 09:39] LABS: CALCIUM 9.5 mg/dL (8.4-11.0); CREATININE 0.93 mg/dL (0.55-1.30); POTASSIUM 3.9 mmol/L (3.5-5.1)
[2018-11-28 09:45] LABS: ALBUMIN 3.9 g/dL (3.4-4.8); TOTAL BILIRUBIN 0.6 mg/dL (0.0-1.0)
[2018-11-28 09:54] LABS: INR 0.9 (0.8-1.2); PROTHROMBIN TIME 9.6 SECS (9.5-12.5)
[2018-11-28 10:17] LABS: BILIRUBIN,URINE NEGATIVE (NEGATIVE); CLARITY/URINE CLEAR (CLEAR); COLOR,URINE YELLOW (YELLOW); GLUCOSE,URINE NEGATIVE (NEGATIVE); KETONES,URINE 2+ (NEGATIVE); LEUKOCYTE ESTERASE ,URINE NEGATIVE (NEGATIVE); NITRITE, URINE NEGATIVE (NEGATIVE); PROTEIN URINE TRACE (NEGATIVE); UROBILINOGEN,URINE 0.2 (0.2-1.0)
[2018-11-28 10:22] LABS: BLOOD, URINE TRACE (NEGATIVE)
[2018-11-28] MEDS ORDERED: IOHEXOL 100 ML IV ONE (10:24)
[2018-11-28 10:55] LABS: BACTERIA,URINE FEW /HPF (None Seen); WBC,URINE 0-3 /HPF (0-3)
[2018-11-28] MEDS ORDERED: FAMOTIDINE PF 20 MG/2 ML VIAL IVP ONE (11:30)
[2018-11-28] MEDS ORDERED: fentaNYL CITRATE/PF 100 MCG/2 ML AMP IVP ONE (11:30)
[2018-11-28] MEDS ORDERED: LEVO25TA7 PO (13:50)
[2018-11-28] MEDS ORDERED: ONDANSETRON HCL 4 MG/2 ML VIAL IVP PRN (14:00)
[2018-11-28] MEDS ORDERED: NACL 0.9% 1,000 ML IV SCH (14:00)
[2018-11-28] MEDS ORDERED: PANTOPRAZOLE SODIUM 40 MG/VIAL (PROTONIX) IVP ONE (14:00)
[2018-11-28] MEDS ORDERED: MORPHINE 4 MG/ML INJ. SYRINGE IVP PRN (14:30)
[2018-11-28] MEDS: ONDANSETRON HCL 4 MG/2 ML VIAL IVP PRN (14:37)
[2018-11-28 14:42] VITALS: BP_SYST 158
[2018-11-28] MEDS ORDERED: MORPHINE 4 MG/ML INJ. SYRINGE ONE (14:44)
[2018-11-28] MEDS: NACL 0.9% 1,000 ML IV SCH (15:36)
[2018-11-28 20:30] VITALS: BP_SYST 128
[2018-11-29] MEDS: NACL 0.9% 1,000 ML IV SCH ×2 (00:25→09:40)
[2018-11-29 00:30] VITALS: BP_SYST 131
[2018-11-29] MEDS ORDERED: ACETAMINOPHEN 325 MG TABLET PO PRN (06:45)
[2018-11-29] MEDS: ONDANSETRON HCL 4 MG/2 ML VIAL IVP PRN (06:47)
[2018-11-29] MEDS ORDERED: ACETAMINOPHEN 325 MG TABLET ONE (06:47)
[2018-11-29 07:05] LABS: ALBUMIN 3.2 g/dL (3.4-4.8); CALCIUM 8.4 mg/dL (8.4-11.0); CREATININE 0.74 mg/dL (0.55-1.30); POTASSIUM 3.4 mmol/L (3.5-5.1); TOTAL BILIRUBIN 0.5 mg/dL (0.0-1.0)
[2018-11-29 08:00] VITALS: BP_SYST 131
[2018-11-29 08:21] LABS: HEMATOCRIT 36.9 % (36-48); HEMOGLOBIN 12.4 g/dL (12.0-16.0); MEAN CORPUSCULAR HEMOGLOBIN 31 pg (27-31); MEAN CORPUSCULAR HGB CONC 34 % (32-36); MEAN CORPUSCULAR VOLUME 92 fL (79.0-98.0); PLATELET COUNT (AUTO) 198 K/uL (130-430); RED BLOOD CELL COUNT(AUTO) 4.01 MIL/uL (4.2-6.2); RED CELL DISTRIBUTION WIDTH 13.2 % (9.0-15.0); WHITE BLOOD COUNT (AUTO) 8.4 K/uL (4.8-10.8)
[2018-11-29 08:22] LABS: BASOPHILS % (AUTO) 0.5 % (0.0-2.0); EOSINOPHILS # (AUTO) 0.1 K/uL (0.0-0.4); EOSINOPHILS % (AUTO) 0.7 % (0.0-4.0); LYMPHOCYTES # (AUTO) 2.1 K/uL (1.0-5.5); LYMPHOCYTES % (AUTO) 25.4 % (20.5-51.5); MONOCYTES # (AUTO) 0.8 K/uL (0.0-1.0); MONOCYTES % (AUTO) 9.8 % (1.7-9.3); NEUTROPHILS # (AUTO) 5.3 K/uL (1.8-7.7); NEUTROPHILS % (AUTO) 63.6 % (40.0-70.0)
[2018-11-29] MEDS: ENOXAPARIN SODIUM 40 MG/0.4 ML SYRINGE SUBCUT SCH ×2 (09:00→09:36)
[2018-11-29] MEDS ORDERED: PANTOPRAZOLE SODIUM 40 MG/VIAL (PROTONIX) IVP SCH (09:00)
[2018-11-29] MEDS ORDERED: POTASSIUM CHLORIDE 20 MEQ/PKT PACKET PO ONE (09:45)
[2018-11-29] MEDS ORDERED: ONDA4TAB5 PO (10:53)
[2018-11-29] MEDS ORDERED: FAMO20TA8 PO (10:53)
[2018-11-29 10:55] VITALS: BP_SYST 131
== END 2018-11-29 11:13 | disposition home or self-care (01) | DRG 918 ==
LOC: SED 08:27 → SMU 13:50
PROVIDERS: ADMIT Internal Medicine; ATTEND Internal Medicine
DX: T40.7X1A Poisoning by cannabis (derivatives), accidental (unintentional), initial encounter (principal); E03.9 Hypothyroidism, unspecified; F17.200 Nicotine dependence, unspecified, uncomplicated; H54.8 Legal blindness, as defined in USA; M19.90 Unspecified osteoarthritis, unspecified site; K58.9 Irritable bowel syndrome, unspecified; M81.0 Age-related osteoporosis without current pathological fracture; Z90.49 Acquired absence of other specified parts of digestive tract; Z88.6 Allergy status to analgesic agent; Z88.8 Allergy status to other drugs, medicaments and biological substances; Z79.2 Long term (current) use of antibiotics; Z79.899 Other long term (current) drug therapy; Y92.89 Other specified places as the place of occurrence of the external cause
CPT/HCPCS: 36415; 80053; 81000-TC; 83690-TC; 85025; 85610-TC; 96374; 96375; 96376; 99285; C9113; J1650; J2270; J2405; J3010; J3490; J7030; Q9967